=== PATIENT | female | born 1985 | race Caucasian/White ===

== ENCOUNTER 2019-11-06 12:42 | Outpatient (REF) | payer OTHER, SELFPAY | END 2019-11-06 13:02 | LOC: NCHCN 12:42 | PROVIDERS: PCP Nurse Practitioner Family; Visit Provider Nurse Practitioner Family | DX: R35.0 Frequency of micturition (principal) | CPT/HCPCS: 87077; 87086; 87186 ==

== ENCOUNTER 2021-08-03 15:07 | Outpatient (REF) | payer BC, SELFPAY ==
[2021-08-03 17:47] LABS: HCT 39.2 % (36.0-46.0); HGB 13.9 g/dL (11.2-15.7); MCH 32.8 pg (27.0-33.0); MCHC 35.5 % (32.0-36.0); MCV 92.5 fL (80-95); MPV 9.9 fL (8.0-11.0); Platelet Count 279 10^3/uL (130-400); RBC 4.24 10^6/uL (3.93-5.22); RDW-SD 38.9 fL; WBC 5.28 10^3/uL (4.4-10.8)
[2021-08-03 18:06] LABS: Anion Gap 9.3 mmol/L (3-11); BUN 10 mg/dL (7-18); CO2 26.7 mmol/L (21.0-32.0); CREATININE 0.8 mg/dL (0.55-1.02); Calcium 9.1 mg/dL (8.5-10.1); Chloride 103 mmol/L (98-107); Glucose 89 mg/dL (74-106); Potassium 4.4 mmol/L (3.5-5.1); Sodium 139 mmol/L (136-145); TSH 2.64 uIU/mL (0.36-3.74)
[2021-08-05 05:08] LABS: Vitamin D 25 Total 32.1 ng/mL (30-100)
== END 2021-08-03 15:08 | disposition home or self-care (01) ==
LOC: NCHCN 15:07
PROVIDERS: PCP Nurse Practitioner Family; Visit Provider Nurse Practitioner Family
DX: F41.8 Other specified anxiety disorders (principal)
CPT/HCPCS: 80048; 82306; 85027; 84443

== ENCOUNTER 2022-12-19 17:48 | Outpatient (REF) | payer SELFPAY ==
--- OUTSIDE RECORDS SUMMARY | 2022-12-19 17:52 | XMS_ITS | CCD ---
Author Name Unknown Address [address] [place] [address] [phone] Organization Unknown Address [address] [place] [address] [phone] Care Team Providers Care Electrical Sign Wirer Name Role Phone CLINT QUIROZ Attending Physician [phone] THEA IRWIN (Secondary) Physicia n [phone] Vital Signs Unknown or Not Available. Allergies Unknown or Not Available. Procedures Unknown or Not Available. History of Immunizations Unknown or Not Available. Problems Unknown or Not Available. Results Unknown or Not Available. Active Medications Unknown or Not Available. Medications Administered During Visit Unknown or Not Available. Encounters Encounter Diagnosis Diagnosis Code Start Date Contraception care education [id number] Social History Smoking Status Code Start Date End Date Never smoker [id number] Patient Decision Aids Unknown or Not Available. Discharge Instructions You were admitted to [facility] on 06/08/2022 11:17 with a principal diagnosis of Encounter for other general counseling and advice on contraception You were discharged from [facility] on 06/08/2022 11:19 Should you have any questions prior to discharge, please contact a member of your healthcare team. If you have left the hospital and have any questions, please contact your primary care physician. Chief Complaint and Reason For Visit Unknown or Not Available. Function Status Unknown or Not Available. Plan of Care Unknown or Not Available. Referral/Transition of Care Unknown or Not Available.
== END 2022-12-19 17:49 | disposition home or self-care (01) ==
LOC: NCHCN 17:48
PROVIDERS: PCP Nurse Practitioner Family; Visit Provider Nurse Practitioner Family
DX: M79.671 Pain in right foot (principal); R63.5 Abnormal weight gain; Z82.8 Family history of other disabilities and chronic diseases leading to disablement, not elsewhere classified; F51.04 Psychophysiologic insomnia
CPT/HCPCS: 84443

== ENCOUNTER 2023-04-03 12:01 | Outpatient (REF) | payer OTHER, SELFPAY ==
--- NOTE | 2023-04-03 09:30 | PAPFT_PTH ---
PATIENT: Annalise Shepherd LOC: [facility]#:[id number] AGE/SX: 38/F ROOM: RE04/03/[address]: Seema Estevez : 1985 BED: DIS: 04/03/2023 SPEC #: [id number] RECD: 04/03/23 17:42 STATUS: AYDIN REGris #: [id number] MEGGAN: 04/03/23 09:[address]: Seema Johnson DEPT: [facility] Cytology RECD BY: [place] Tissues: 1 - CX/ENDOCX FOR PAP SMEARS Procedures: PAP THIN PREP/[facility] Screening HPV DNA PROBE Comments: [id number] (CHLAMYDIA/GC)
[2023-04-04 13:32] LABS: Chlamydia Result Negative (Negative); GC Result Negative (Negative)
== END 2023-04-03 12:02 | disposition home or self-care (01) ==
LOC: NCHCN 12:01
PROVIDERS: PCP Nurse Practitioner Family; Visit Provider Nurse Practitioner Family
DX: Z12.4 Encounter for screening for malignant neoplasm of cervix (principal); Z11.51 Encounter for screening for human papillomavirus (HPV); Z11.3 Encounter for screening for infections with a predominantly sexual mode of transmission
CPT/HCPCS: 87491; 87591; 88142; 87624

== ENCOUNTER 2024-06-24 17:04 | Outpatient (REF) | payer SELFPAY ==
[2024-06-24 21:31] LABS: ALT 50 U/L (14-59); AST 37 U/L (15-37); Alkaline Phosphatase 64 U/L (46-116); Anion Gap 4.1 mmol/L (3-11); BUN 10 mg/dL (7-18); Bilirubin, Total 0.21 mg/dL (0.2-1.0); CO2 30.9 mmol/L (21.0-32.0); Calcium 9.3 mg/dL (8.5-10.1); Chloride 105 mmol/L (98-107); Estimated GFR 74.41 (mL/min/1.73m2); Glucose 92 mg/dL (74-106); Potassium 3.9 mmol/L (3.5-5.1); Sodium 140 mmol/L (136-145); TSH 3.74 uIU/mL (0.36-3.74); Total Protein 7.4 g/dL (6.4-8.2)
== END 2024-06-24 17:05 | disposition home or self-care (01) ==
LOC: NCHCN 17:04
PROVIDERS: PCP Nurse Practitioner Family; Visit Provider Nurse Practitioner Family
DX: L65.9 Nonscarring hair loss, unspecified (principal); E66.3 Overweight
CPT/HCPCS: 80053; 84443

== ENCOUNTER 2024-12-30 19:35 | Outpatient (REF) | payer SELFPAY ==
[2024-12-30 15:42] LABS: HCT 41.3 % (36.0-46.0); HGB 14.3 g/dL (11.2-15.7); MCH 30.9 pg (27.0-33.0); MCHC 34.6 % (32.0-36.0); MCV 89 fL (80-95); MPV 9.4 fL (8.0-11.0); Platelet Count 297 10^3/uL (130-400); RBC 4.63 10^6/uL (3.93-5.22); RDW 12.3 % (11.7-14.6); RDW-SD 39.1 fL; WBC 5.48 10^3/uL (4.4-10.8)
[2024-12-30 15:43] LABS: Abs Immature Grans 0.01 10^3/uL (0.0-0.06); Immature Grans % 0.2 %
[2024-12-30 15:44] LABS: Glucose Negative (Negative)
[2024-12-30 15:55] LABS: RBC 0-2 HPF (0-2); WBC Negative HPF (0-5)
[2024-12-30 15:56] LABS: C & S Indicated? No
[2024-12-30 15:57] LABS: Hemoglobin A1C 5.0 % (<5.7)
[2024-12-30 15:59] LABS: ALT 37 U/L (14-59); AST 29 U/L (15-37); Albumin 3.9 g/dL (3.4-5.0); Alkaline Phosphatase 55 U/L (46-116); Anion Gap 6.1 mmol/L (3-11); BUN 8 mg/dL (7-18); Bilirubin, Total 0.4 mg/dL (0.2-1.0); CO2 27.9 mmol/L (21.0-32.0); Calcium 9.0 mg/dL (8.5-10.1); Calculated LDL 67 mg/dL (<100); Chloride 103 mmol/L (98-107); Cholesterol 185 mg/dL (<200); Estimated GFR 114.16 (mL/min/1.73m2); Glucose 107 mg/dL (74-106); HDL Cholesterol 110 mg/dL (>or=50); Potassium 4.1 mmol/L (3.5-5.1); Sodium 137 mmol/L (136-145); TSH 2.10 uIU/mL (0.36-3.74); Total Protein 7.3 g/dL (6.4-8.2); Triglyceride 43 mg/dL (<150)
== END 2024-12-30 19:36 | disposition home or self-care (01) ==
LOC: NCHCN 19:35
PROVIDERS: PCP Nurse Practitioner Family; Visit Provider Nurse Practitioner Family
DX: R42 Dizziness and giddiness (principal); Z13.220 Encounter for screening for lipoid disorders; Z13.1 Encounter for screening for diabetes mellitus; R35.0 Frequency of micturition
CPT/HCPCS: 80053; 80061; 81003; 81015; 83036; 84443; 85025